=== PATIENT | male | born 1965 | race Caucasian/White ===

== ENCOUNTER 2020-05-19 13:37 | Outpatient (CLI) | payer OTHER, SELFPAY | END 2020-05-19 13:38 | disposition home or self-care (01) | LOC: ANHAUDIO 13:38 | PROVIDERS: PCP Pediatrics; Visit Provider Otolaryngology | DX: H90.3 Sensorineural hearing loss, bilateral (principal) | CPT/HCPCS: 92557; 92567 ==

== ENCOUNTER 2020-06-25 13:54 | Emergency (ER) | payer OTHER, SELFPAY ==
--- NOTE | ~2020-06-25 | XR_ITS ---
XR lumbar spine min 4V DATE: 06/25/2020 14:32 INDICATION: Low back pain TECHNIQUE: AP, lateral, bilateral oblique and coned lateral lumbosacral views COMPARISON: None FINDINGS: There are 6 functional lumbar vertebrae. There is mild dextroscoliosis of the lumbar spine. There is degenerative spurring of lower thoracic and upper lumbar spine. There is moderate degenerative disc disease at the functional L1-2 and L2-3 lumbar interspaces with r elative sparing of the remaining L3-4 through lumbosacral interspaces. No fracture or bone destruction or spondylolisthesis. There is degenerative change at the sacroiliac joints. IMPRESSION: Degenerative changes of the lower thoracic and lumbar spine Reviewed, dictated and finalized at location A.
[2020-06-25 14:09] VITALS: BP 142/77; PULSE 102; RESP 18; TEMP 37.5; O2SAT 99
--- NOTE | 2020-06-25 14:19 | ED.BACK ---
HPI - Back Pain/Injury General Chief Complaint: Back Pain/Injury Stated Complaint: lower back pain Time Seen by Provider: 06/25/20 14:19 Source: patient Mode of arrival: ambulatory Limitations: no limitations History of Present Illness HPI Narrative: Dario Wright is a 55 yo male with aPMH of HTN, prostate cancer treated with prostatectomy, who comes to the [facility] care with complaints of low back pain that started about a month ago while he was laying on his back changing oil his truck and has not proved. He is tried taking aspirin and ibuprofen and tramadol that belonged to his but the pain is persistent and has not improved. He denies any other kind of injury. He is a former pack and 1/2-day smoker that quit 6 years ago. He socially drinks Related Data Home Medications Medication Instructions Recorded Confirmed No Home Medications 06/25/20 06/25/20 Allergies Allergy/AdvReac Type Severity Reaction Status Date / Time No Known Allergies Allergy Verified 05/06/20 08:45 Review of Systems Review of Systems: Narrative: CONSTITUTIONAL: Denies fever, chills, sweats. EYES: Denies visual changes, redness, discharge. ENT: Denies rhinorrhea, congestion, sore throat, otalgia. CARDIOVASCULAR: Denies chest pain, palpitations, edema. RESPIRATORY: Denies dyspnea, wheezing, cough GASTROINTESTINAL: Denies abdominal pain, nausea, vomiting, diarrhea. GENITOURINARY: Denies dysuria, hematuria, abnormal discharge SKIN: Denies rash or itching. NEUROLOGIC: Denies numbness, or focal weakness. PSYCHIATRIC: Denies anxiety or depression. Low back pain-started 1 month ago-bony tenderness PMFSH Past Medical History Medical History HTN (hypertension) Surgical History Surgical History (Updated 06/25/20 @ 14:22 by Melody Beyer CNP) H/O prostatectomy Family History Family History Other Hypertension Social History Social History (Updated 06/25/20 @ 14:23 by Melody Beyer CNP) Smoking packs per day: 1.5 Smoking cigarettes per day: 30.0 Smoking status: Former smoker Tobacco type: cigarettes Alcohol intake: current Gender identity (if verbalized by the patient): Male Comments At time of signature, I agree with nursing past medical, surgical, social and family history. There is no relevant family history pertinent to the presenting complaint. Exam Narrative: Exam Narrative: GENERAL: This is a well-nourished, well-developed patient, in mild distress. Appears older than his stated age HEAD: normocephalic, atraumatic. EYES: Sclera clear/white. Vision is grossly intact. EARS: External ears normal, Hearing grossly intact. NOSE: External nose normal without nasal discharge, nares without redness, no rhinorrhea. THROAT: Mucous membranes moist, NECK: Neck supple, CARDIOVASCULAR: Regular rate and rhythm without murmurs, gallops, or rubs. RESPIRATORY: Coarse to auscultation. Breath sounds equal bilaterally. No wheezes, rales, or rhonchi. GASTROINTESTINAL: Abdomen soft, SKIN: warm, intact, dusky with no suspicious lesions or rash, good texture and turgor. NEURO: awake, alert, and oriented to person, place and time. There were no obvious focal neurologic abnormalities. Steady gait EXTREMITIES: Normal range of motion. BACK: Bony tenderness without deformity; no thighs pain within lumbar spine with no radiation-no loss of bladder or bowel function Course Course Emergency Course: Patient presents to express care with low back pain of 1 month duration at the cannot identify injury states started after lying on ground about a month ago changing oil but has continued since then and is unremitting has tried multiple medications without relief 5 lumbar back results: No fracture or bone destruction or spondylolithiasis; degenerative change at the sacroiliac joint, degenerative changes of the lower thoracic a
== END 2020-06-25 15:13 | disposition home or self-care (01) ==
PROVIDERS: Emergency Provider Nurse Practitioner
DX: M54.5 Low back pain (principal); Z87.891 Personal history of nicotine dependence; I10 Essential (primary) hypertension; Z90.79 Acquired absence of other genital organ(s)
CPT/HCPCS: 72110; 99213; G0463